=== PATIENT | female | born 1990 | race Two or more races ===

== ENCOUNTER 2022-12-29 13:30 | Inpatient (IN) | payer OTHER ==
[~2022-12-29] VITALS: Ht 154.9 cm; Wt 3.2 kg
[2023-01-06] MEDS ORDERED: PRENATAL TABLE1 EAC4 (03:08)
[2023-01-06 03:28] LABS: HEMATOCRIT 35.4 % (36.0-45.00); HEMOGLOBIN 11.6 g/dL (12.0-15.00); MEAN CELL VOLUME 85.7 fL (80.00-100.00); MEAN CORPUSCULAR HEMOGLOBIN 28.1 pg (27.00-32.0); MEAN CORPUSCULAR HGB CONC 32.9 g/dl (32.0-36.0); PLATELET COUNT 237 K/uL (150-450); RED BLOOD COUNT 4.13 M/uL (4.00-6.00); RED CELL DISTRIBUTION WIDTH 14.9 % (11.5-14.5)
[2023-01-06 03:52] LABS: INR < 0.93; PROTHROMBIN TIME 9.7 SECONDS (9.0-11.5)
[2023-01-06 03:56] LABS: ALBUMIN 2.7 gm/dL (3.4-5.0); BILIRUBIN TOTAL 0.15 mg/dL (0.3-1.2); CALCIUM 8.7 mg/dL (8.5-10.1); CREATININE SERUM 0.5 mg/dL (0.55-1.02); GFR 141.23; GLOBULINA 3.4 G/DL (2.4-3.5); POTASSIUM 3.67 mEq/L (3.5-5.1); TOTAL PROTEIN 6.1 gm/dL (6.4-8.2)
[2023-01-06 12:32] LABS: ABG pCO2 55.5 mmHg (35-45); BASE EXCESS -5.6 mmol/l; BICARBONATE 22.7 mmol/l (23-25); SaO2 13.9 %; Tco2 24.4 mmol/l
[2023-01-06 12:36] LABS: ABG PO2 15.4 mmHg (80-100); o2 21 %
[2023-01-07 10:09] LABS: HEMATOCRIT 33.3 % (36.0-45.00); HEMOGLOBIN 10.8 g/dL (12.0-15.00); MEAN CELL VOLUME 87.4 fL (80.00-100.00); MEAN CORPUSCULAR HEMOGLOBIN 28.4 pg (27.00-32.0); MEAN CORPUSCULAR HGB CONC 32.5 g/dl (32.0-36.0); PLATELET COUNT 216 K/uL (150-450); RED BLOOD COUNT 3.81 M/uL (4.00-6.00)
== END 2023-01-08 13:24 | disposition home or self-care (01) | DRG 788 ==
LOC: LDR 01-06 02:37 → O/R 01-06 09:48 → OB/GYN 01-06 10:08 → O/R 01-19 13:30
PROVIDERS: Obstetrics & Gynecology; ADMIT Obstetrics & Gynecology Maternal & Fetal Medicine; ATTEND Obstetrics & Gynecology Maternal & Fetal Medicine
PROC: 4A1HXCZ Monitoring of Products of Conception, Cardiac Rate, External Approach (ICD-10-PCS; 2023-01-06)
PROC: 10D00Z1 Extraction of Products of Conception, Low, Open Approach (ICD-10-PCS; principal; 2023-01-06 09:30)
DX: O36.8130 Decreased fetal movements, third trimester, not applicable or unspecified (principal); Z3A.38 38 weeks gestation of pregnancy; Z37.0 Single live birth; Z20.822 Contact with and (suspected) exposure to COVID-19

== ENCOUNTER 2024-10-25 08:00 | Inpatient (IN) | payer OTHER ==
[~2024-10-25] VITALS: Ht 154.9 cm; Wt 70.3 kg
[~2024-10-25 08:00] MED LIST: PRENATAL TABLE1 EAC4
[2024-10-25 09:40] LABS: BASO % 0.3 % (0.1-1.2); EOS # 0.10 (0.04-0.54); EOS % 1.2 % (0.7-7.0); LYMPH # 1.59 (1.18-3.74); LYMPH % 18.4 % (19.3-53.1); MEAN PLATELET VOLUME 10.70 fl (9.4-12.4); MONO # 0.65 (0.24-0.82); MONO % 7.5 % (4.7-12.5); NEUT # 6.17 (1.56-6.13); NEUT % 71.4 % (34.0-71.1); RED CELL DISTRIBUTION WIDTH 15.3 % (11.6-14.4)
[2024-10-25 10:12] LABS: COVID-19 AG NEGATIVE (NEGATIVE)
[2024-10-25 10:12] LABS: INR < 0.93
[2024-10-25 10:30] LABS: ALT/SGPT 16.0 U/L (12-78); AST/SGOT 19.0 U/L (15-37); BILIRUBIN TOTAL 0.25 mg/dL (0.3-1.2); BUN CREA RATIO 11.0 (7.0-25.0); CREATININE SERUM 0.45 mg/dL (0.55-1.02); GFR 158.56; GLOBULINA 3.7 G/DL (2.4-3.5); GLUCOSE FASTING 104.0 mg/dL (65-100); OSMOLALITY SERUM 277.0 MOSM/KG (275-295)
[2024-10-28 04:44] VITALS: BP 107/69
[2024-10-28] MEDS ORDERED: CEFAZOLIN SODIUM 1,000 MG VIAL IV SCH (05:45)
[2024-10-28] MEDS ORDERED: RINGERS SOLUTION,LACTATED 1,000 ML IV SCH (05:45)
[2024-10-28] MEDS ORDERED: CITRIC ACID/SODIUM CITRATE 30 ML BLIST.PACK PO SCH (05:45)
[2024-10-28 06:05] VITALS: BP 116/71; O2SAT 100
[2024-10-28] MEDS ORDERED: OXYTOCIN 1,000 ML IV SCH (07:30)
[2024-10-28] MEDS ORDERED: MORPHINE SULFATE 4 MG/ML CARTRIDGE IV PRN (07:30)
[2024-10-28] MEDS ORDERED: MORPHINE SULFATE 4 MG/ML VIAL IV ONE (09:40)
[2024-10-28 10:56] VITALS: BP 117/72
[2024-10-28 16:00] VITALS: BP 108/66
[2024-10-29] VITALS: BP 105/65
[2024-10-29 08:20] VITALS: BP 110/68
[2024-10-29] MEDS ORDERED: OxyCODONE HCL 5 MG TABLET (ROXICODONE) PO PRN (09:45)
[2024-10-29 10:34] LABS: BASO % 0.2 % (0.1-1.2); EOS # 0.03 (0.04-0.54); EOS % 0.2 % (0.7-7.0); LYMPH # 1.33 (1.18-3.74); LYMPH % 9.3 % (19.3-53.1); MEAN PLATELET VOLUME 10.70 fl (9.4-12.4); MONO # 0.96 (0.24-0.82); MONO % 6.7 % (4.7-12.5); NEUT # 11.79 (1.56-6.13); NEUT % 82.6 % (34.0-71.1); RED CELL DISTRIBUTION WIDTH 15.4 % (11.6-14.4)
[2024-10-29 12:19] VITALS: BP 117/75
[2024-10-29 16:00] VITALS: BP 108/71
[2024-10-30] VITALS: BP 90/60
[2024-10-30] MEDS ORDERED: ERYTHROMYCIN BASE OPHT 1GM EACH TUBE OP SCH (01:30)
[2024-10-30] MEDS ORDERED: OXYTOCIN 10 UNITS/ML VIAL IV ONE (01:30)
[2024-10-30 09:36] VITALS: BP 106/67
== END 2024-10-30 11:16 | disposition home or self-care (01) | DRG 785 ==
LOC: LDR 10-28 05:16 → OB/GYN 10-28 05:16 → O/R 10-28 07:24 → OB/GYN 10-28 08:12 → LDR 10-30 08:00 → OB/GYN 10-30 11:16
PROVIDERS: Obstetrics & Gynecology; ADMIT Obstetrics & Gynecology Maternal & Fetal Medicine; ATTEND Obstetrics & Gynecology Maternal & Fetal Medicine
PROC: 0UB70ZZ Excision of Bilateral Fallopian Tubes, Open Approach (ICD-10-PCS; 2024-10-28)
PROC: 0DNW0ZZ Release Peritoneum, Open Approach (ICD-10-PCS; 2024-10-28)
PROC: 4A1HXCZ Monitoring of Products of Conception, Cardiac Rate, External Approach (ICD-10-PCS; 2024-10-28)
PROC: 10D00Z1 Extraction of Products of Conception, Low, Open Approach (ICD-10-PCS; principal; 2024-10-28 07:15)
DX: O34.211 Maternal care for low transverse scar from previous cesarean delivery (principal); Z3A.38 38 weeks gestation of pregnancy; Z37.0 Single live birth; Z30.2 Encounter for sterilization